=== PATIENT | male | born 1940 | race Caucasian/White ===

== ENCOUNTER 2017-04-23 04:26 | Emergency (ER) | payer MEDICARE, BC ==
--- NOTE | 2017-04-23 05:13 | EDM.PDOC ---
ED HPI GENERAL MEDICAL PROBLEM - General Chief Complaint: Lower Extremity Injury/Pain Stated Complaint: FALL Time Seen by Provider: 04/23/17 04:41 Source of Information: Reports: Patient, RN Notes Reviewed - History of Present Illness INITIAL COMMENTS - FREE TEXT/NARRATIVE: 77-year-old male comes in with left ankle pain. He states he slipped on some ice last evening with resultant injury to the ankle. Discomfort is very mild at rest but more severe with any attempted weightbearing. Denies injury or pain to the knee hip or any other area of his body. Left Ankle Pain Score (Numeric/FACES): 8 - Related Data Allergies Allergy/AdvReac Type Severity Reaction Status Date / Time No Known Allergies Allergy Verified 04/23/17 04:35 Home Meds: Home Meds Aspirin [Halfprin] 81 mg PO DAILY 04/23/17 [History] Diltiazem HCl [Cardizem] 1 tab PO DAILY 04/23/17 [History] Multivitamin [Multi-Vitamin Daily] 1 tab PO DAILY 04/23/17 [History] Past Medical History HEENT History: Reports: Cataract Cardiovascular History: Reports: Afib, CAD, High Cholesterol, Hypertension, [place], Stents Neurological History: Reports: CVA - Past Surgical History HEENT Surgical History: Reports: Cataract Surgery Cardiovascular Surgical History: Reports: Carotid Stents, Coronary Artery Bypass GI Surgical History: Reports: Appendectomy Social & Family History - Family History Family Medical History: Noncontributory - Tobacco Use Smoking Status *Q: Never Smoker - Recreational Drug Use Recreational Drug Use: No Review of Systems - Review of Systems Review Of Systems: See Below Eyes: Reports: No Symptoms Mouth/Throat: Reports: No Symptoms Respiratory: Denies: Pleuritic Chest Pain Cardiovascular: Denies: Chest Pain GI/Abdominal: Denies: Nausea, Vomiting Musculoskeletal: Reports: Leg Pain (Left lower leg), Joint Pain (Left ankle) Skin: Reports: No Symptoms Neurological: Denies: Numbness, Tingling ED EXAM, GENERAL - Physical Exam Exam: See Below General Appearance: Alert, No Apparent Distress Head: Atraumatic Neck: Supple Respiratory/Chest: No Respiratory Distress Extremities: Leg Pain ( no pain with torsion mild tenderness left mid lateral leg, no visible deformity ), Other (There is tenderness of the left ankle, lateral aspect very minimal swelling, mild pain with motion) Neurological: No Motor/Sensory Deficits Skin Exam: Warm, Dry, Other (Stasis dermatitis present left lower leg, ankle and foot) Course - Vital Signs Last Recorded V/S: Last Vital Signs Temp 95.7 F 04/23/17 04:31 Pulse 60 04/23/17 04:31 Resp 16 04/23/17 04:31 BP 132/84 04/23/17 04:31 Pulse Ox 95 04/23/17 04:31 - Orders/Labs/Meds Orders: Active Orders 24 hr Category Date Time Status Ankle Min 3V Lt [CR] Stat Exams 04/23/17 04:46 Ordered Tibia Fibula Lt [CR] Stat Exams 04/23/17 04:46 Ordered Departure - Departure Time of Disposition: 05:21 Disposition: Home, Self-Care 01 Condition: Fair Clinical Impression: Ankle sprain Qualifiers: Encounter type: initial encounter Involved ligament of ankle: unspecified ligament Laterality: left Qualified Code(s): S93.402A - Sprain of unspecified ligament of left ankle, initial encounter - Discharge Information Referrals: Olu Oh MD [Primary Care Provider] - Additional Instructions: Your Xrays show no fracture. Derek wrap left ankle until pain resolving, rest and elevates ankle and foot as much as possible, use walker as much as possible when you do need to walk, follow-up clinic for recheck if not getting better within 5-7 days as expected, return to ED as needed. - My Orders Last 24 Hours: My Active Orders 04/23/17 04:46 Ankle Min 3V Lt [CR] Stat Tibia Fibula Lt [CR] Stat - Assessment/Plan Last 24 Hours: My Active Orders 04/23/17 04:46 Ankle Min 3V Lt [CR] Stat Tibia Fibula Lt [CR] Stat
[2017-04-23] MEDS ORDERED: Acetaminophen 325 MG Tab PO ONE (05:20)
--- NOTE | 2017-04-23 06:48 | CR ---
Left ankle: Two views of the left ankle were obtained as well as two-view showing the left tibia and fibula Ankle mortise is symmetric. Small bony densities are identified off the distal tip of the fibula and distal medial malleolus compatible with old injury. No acute fracture is seen. Vascular calcification is noted. Surgical clips are seen within the lower extremity. Impression: 1. No acute bony abnormality identified on left ankle exam. 2. Other incidental findings as noted above. Diagnostic code #2
--- NOTE | 2017-04-23 07:36 | CR ---
Left tibia and fibula: AP and lateral views of the left tibia and fibula were obtained. Surgical clips are seen along the medial lower extremity. Extensive arterial calcification is seen. No acute fracture or other abnormality is identified. Impression: 1. Incidental findings. No acute bony abnormality is identified. Diagnostic code #2
== END 2017-04-23 05:41 | disposition home or self-care (01) ==
LOC: JD.ED 04:26
DX: S93.402A Sprain of unspecified ligament of left ankle, initial encounter (principal); E78.00 Pure hypercholesterolemia, unspecified; I10 Essential (primary) hypertension; Z79.82 Long term (current) use of aspirin; Z79.899 Other long term (current) drug therapy; W00.0XXA Fall on same level due to ice and snow, initial encounter
CPT/HCPCS: 73590; 73610; 99284; A9270; 99283

== ENCOUNTER 2017-09-12 23:45 | Emergency (ER) | payer MEDICARE, BC ==
--- NOTE | 2017-09-13 02:27 | EDM.PDOC ---
ED HPI GENERAL MEDICAL PROBLEM - General Chief Complaint: Back Pain or Injury Stated Complaint: BACK PAIN Time Seen by Provider: 09/13/17 02:06 Source of Information: Reports: Patient, Family (Son) History Limitations: Reports: Other (Somewhat confused) - History of Present Illness INITIAL COMMENTS - FREE TEXT/NARRATIVE: The patient states that he missed a step while carrying a box of glasses around 10-14 days ago, injuring his lower back, although he did not fall at the time. The pain is felt only in the lower back, and does not radiate. He has been taking Tylenol only. He states that he has seen a chiropractor 3 times, with only temporary relief. He saw his PCP, Dr. Oh, this past 09/10/2017. X-rays of his lower back were negative, and a urinalysis was normal. According to the patient, Dr. Oh recommended that the patient continue with the chiropractor, as well as look into massage. There has been no change in the patient's back pain since he saw Dr. Oh, however, he came to the ED tonight because he had trouble sleeping. The patient acknowledges that he does "not much" activity, other than driving. He acknowledges that he sits in his recliner most of the day. The patient has had prior low back strain, treated by a chiropractor. Lower Back Pain Score (Numeric/FACES): 8 - Related Data Allergies Allergy/AdvReac Type Severity Reaction Status Date / Time No Known Allergies Allergy Verified 09/13/17 00:02 Home Meds: Home Meds Aspirin [Halfprin] 81 mg PO DAILY 04/23/17 [History] Multivitamin [Multi-Vitamin Daily] 1 tab PO DAILY 04/23/17 [History] Amiodarone [Cordarone] 200 mg PO DAILY 09/13/17 [History] Carvedilol 12.5 mg PO BID 09/13/17 [History] Furosemide 40 mg PO DAILY 09/13/17 [History] Isosorbide Dinitrate 20 mg PO BID 09/13/17 [History] Lisinopril 2.5 mg PO DAILY 09/13/17 [History] Orphenadrine [Norflex] 1 tab PO Q12H PRN #10 tab.er 09/13/17 [Rx] Simvastatin [Zocor] 80 mg PO DAILY 09/13/17 [History] Warfarin [Coumadin] 2.5 mg PO DAILY 09/13/17 [History] Past Medical History HEENT History: Reports: Cataract Cardiovascular History: Reports: Afib, CAD, High Cholesterol, [place], Stents Musculoskeletal History: Reports: Fracture Neurological History: Reports: CVA - Past Surgical History HEENT Surgical History: Reports: Cataract Surgery Cardiovascular Surgical History: Reports: Carotid Stents, Coronary Artery Bypass GI Surgical History: Reports: Appendectomy Social & Family History - Family History Family Medical History: Noncontributory - Tobacco Use Smoking Status *Q: Current Every Day Smoker Years of Tobacco use: 50 Packs/Tins Daily: 0.5 - Caffeine Use Caffeine Use: Reports: Coffee - Recreational Drug Use Recreational Drug Use: No ED ROS GENERAL - Review of Systems Review Of Systems: ROS reveals no pertinent complaints other than HPI. ED EXAM,LOWER BACK PAIN/INJURY - Physical Exam Exam: See Below Exam Limited By: No Limitations General Appearance: Alert, WD/WN, No Apparent Distress Back Exam: Other (No visible abnormality to the patient's lower back, such as swelling, erythema, ecchymosis, or abrasion. Minimal tenderness to palpation of the lumbosacral spinous processes, with moderate tenderness to the lumbar paraspinous muscles.) Course - Vital Signs Last Recorded V/S: Last Vital Signs Temp 35.9 C 09/12/17 23:58 Pulse 52 L 09/12/17 23:58 Resp 16 09/12/17 23:58 BP 116/73 09/12/17 23:58 Pulse Ox 90 L 09/12/17 23:58 - Re-Assessments/Exams Free Text/Narrative Re-Assessment/Exam: 09/13/17 02:22 The patient appears to have strained his lower back. Prior evaluation by Dr. Oh on 09/10/2017 did not find any acute injury. Unfortunately, we cannot start the patient on ibuprofen, as he is on Coumadin, however, I can start the patient on Norflex, which may help. Additionally, I am recommending that the patient increase his activity. Departure - Departure Time of Disposition: 02:23 Disposition: Home, Self-Care 01 Condition: Good Clinical Impression: Low back strain - Discharge Information Prescriptions: Orphenadrine [Norflex] 1 tab PO Q12H PRN #10 tab.er PRN Reason: Muscle Spasm Instructions: Low Back Strain Referrals: Olu Oh MD [Primary Care Provider] - Forms: ED Department Discharge Additional Instructions: You were seen in the emergency room for low back pain. On examination, it appears that you have strained your lower back. You have been started on the muscle relaxant Norflex. Take one tablet every 12 hours, as prescribed. Continue to take Tylenol as directed. Follow-up with your PCP, Dr. Oh, as needed. If any other problems, please do not hesitate to return to the ER.
== END 2017-09-13 02:40 | disposition home or self-care (01) ==
LOC: JD.ED 23:45
DX: S39.012A Strain of muscle, fascia and tendon of lower back, initial encounter (principal); I48.91 Unspecified atrial fibrillation; E78.00 Pure hypercholesterolemia, unspecified; I25.2 Old myocardial infarction; F17.210 Nicotine dependence, cigarettes, uncomplicated; Z79.82 Long term (current) use of aspirin; Z79.899 Other long term (current) drug therapy; Z79.01 Long term (current) use of anticoagulants; W10.9XXA Fall (on) (from) unspecified stairs and steps, initial encounter
CPT/HCPCS: 99283

== ENCOUNTER 2017-10-21 06:56 | Day surgery (SDC) | payer MEDICARE, BC ==
--- NOTE | 2017-10-15 10:36 | HP ---
DATE OF ADMISSION: 10/21/2017 HISTORY: This is the first orthopedic outpatient admission for surgery for this 77-year- old male, who is being scheduled for a kyphoplasty fracture stabilization of the T12 vertebral body. The patient suffered a fall dating back to 08/30/2017, had progressive increasing pain, was evaluated in mid September with an MRI evaluation and was found to have the acute compression fracture of T12. He was treated in a conservative fashion, which did not help the pain reaction. He continues to have a pain scale of 7 to 8 with activity. If he does increase significant activity, it increases to a 9. He also notes he has a constant pain with rest at approximately at 1 to 2 level. The patient's functional activity has decreased to approximately 20% of normal. He is very limited in his activities, unable to walk any extended distances, or do any type of extended type of activity due to the pain reaction. With the failed treatment, the patient was seen in the clinic, went over the treatment process of performing a kyphoplasty fracture stabilization. He understands that and feels that he would like to come follow through with the procedure due to the fact that he has not improved in his current pain reaction itself. ALLERGIES: Penicillin, oxycodone, and elavil. CURRENT MEDICATIONS: The patient currently is on levothyroxine, Coreg, Lasix, Zocor, along with Coumadin, lisinopril, . The patient notes will be stopping the Coumadin 5 days prior to surgery. MEDICAL PROBLEMS: Include atrial fibrillation, high blood pressure, had a CVA in the past, atherosclerotic disease of the arteries, congestive heart failure, increased cholesterol, hypothyroidism, melena, and a history of a myocardial infarction in the past. PAST SURGICAL HISTORY: Includes a coronary artery bypass surgery. He has had an appendectomy, hernia repair, knee surgery. He had no anesthesia complications or problems. He has a negative bleeding history, negative blood clot history. SOCIAL HISTORY: The patient is a smoker, half pack per day or less. He does not use alcohol. PHYSICAL EXAMINATION: GENERAL: The patient is a well-developed, well-nourished, 77-year-old male, in moderate to severe distress. He is alert. He shows minimal activity and minimal ambulation type status. HEENT: His head normocephalic. NECK: Supple. CHEST: Clear. COR: Abnormal and irregular due to atrial fibrillation. ABDOMEN: Soft. : Intact. MUSCULOSKELETAL: The thoracic spine reveals severe pain to percussion and palpation over the T12 thoracic spine area. RADIOGRAPHIC STUDIES: MRI shows a positive acute compression fracture osteoporotic of T12 with a localized area of blood formation within the vertebral body creating a soft area and an unstable vertebral body for healing. ASSESSMENT: Overall impression is osteoporotic compression fracture of T12, not healing. PLAN: Will be for the patient to undergo kyphoplasty fracture stabilization with biopsy. MMODAL /[id number]
[~2017-10-21 06:56] MED LIST: Lidocaine 1%/Sod Bicarbonate in NS 8.4% 1 ML Syringe IDERM PRN; Sodium Chloride 0.9% 10 ML Syringe FLUSH PRN
[2017-10-21] MEDS ORDERED: Ondansetron 4 MG/2 ML SDV ONE (07:17)
[2017-10-21] MEDS ORDERED: Midazolam 1 MG/ML 2 ML SDV ONE (07:17)
[2017-10-21] MEDS ORDERED: Propofol 200 MG/20 ML SDV ONE ×2 (07:17→08:35)
[2017-10-21] MEDS ORDERED: fentaNYL 100 MCG/2 ML SDV ONE (07:17)
[2017-10-21] MEDS ORDERED: Lidocaine 1% 4 ML ONE (07:18)
[2017-10-21] MEDS ORDERED: ceFAZolin 1 GM Vial ONE (07:18)
[2017-10-21] MEDS ORDERED: Ketamine 500 mg/10 ML MDV ONE (07:19)
[2017-10-21] MEDS: Lactated Ringers 1,000 ML IV SCH ×2 (07:30→12:27)
[2017-10-21] MEDS ORDERED: Vancomycin 1 GM SDV ONE (07:39)
[2017-10-21] MEDS ORDERED: Iopamidol 612 MG/ML 50 ML SDV ONE (07:39)
[2017-10-21] MEDS ORDERED: Lidocaine 1% with EPINEPHrine 1:100,000 20 ML MDV ONE (07:39)
--- NOTE | 2017-10-21 07:42 | PCM.PREANE ---
Preanesthetic Assessment - Anesthesia/Transfusion/Family Hx Anesthesia History: Prior Anesthesia Without Reaction Family History of Anesthesia Reaction: No Transfusion History: Prior Transfusion Without Reaction - Review of Systems General: No Symptoms Pulmonary: No Symptoms Cardiovascular: No Symptoms Gastrointestinal: No Symptoms Neurological: Change in Speech (stroke from 1995) Other: Reports: Easy Bleeding, Easy Bruising, Thyroid Problems - Physical Assessment NPO Status Date: 10/20/17 NPO Status Time: 00:00 Pulse: 53 O2 Sat by Pulse Oximetry: 92 Respiratory Rate: 20 Blood Pressure: 121/69 Temperature: 36.7 C Height: 1.8 m Weight: 86 kg ASA Class: 3 Mental Status: Alert & Oriented x3 Airway Class: Mallampati = 1 Dentition: Reports: Dentures Thyro-Mental Finger Breadths: 3 Mouth Opening Finger Breadths: 3 ROM/Head Extension: Full Lungs: Clear to Auscultation, Normal Respiratory Effort Cardiovascular: Irregular Rhythm - Lab Values: on chart - Allergies Allergies/Adverse Reactions: Allergies Allergy/AdvReac Type Severity Reaction Status Date / Time amitriptyline [From Elavil] Allergy Itching Verified 10/20/17 16:37 oxycodone Allergy Itching Verified 10/20/17 16:37 Penicillins Allergy Rash Verified 10/20/17 16:37 - Anesthesia Plan Pre-Op Medication Ordered: Beta Portillo Beta Portillo: Carvedilol Med Last Dose Date: 10/21/17 Med Last Dose Time: 06:30 - Acknowledgements Anesthesia Type Planned: MAC Pt an Appropriate Candidate for the Planned Anesthesia: Yes Alternatives and Risks of Anesthesia Discussed w Pt/Guardian: Yes Pt/Guardian Understands and Agrees with Anesthesia Plan: Yes PreAnesthesia Questionnaire HEENT History: Reports: Cataract, Impaired Vision Cardiovascular History: Reports: Afib, CAD, Heart Failure, High Cholesterol, [place] , PVD, Stents, Other (See Below) Other Cardiovascular History: left bundle branch block, ASCVD, varicose veins, PVD Respiratory History: Reports: None Gastrointestinal History: Reports: GERD, Other (See Below) Other Gastrointestinal History: melena, inguinal hernia Genitourinary History: Reports: Prostate Disorder [employer]EL[employer] History: Reports: None Musculoskeletal History: Reports: Back Pain, Chronic, Fracture, Osteoarthritis, Other (See Below) Other Musculoskeletal History: compression fracture, lumbago, plantar fascial fibromatosis Neurological History: Reports: CVA, Other (See Below) Other Neuro History: cerebral embolism with infarction Psychiatric History: Reports: Other (See Below) Other Psychiatric History: insomnia Endocrine/Metabolic History: Reports: Hypothyroidism Hematologic History: Reports: None Immunologic History: Reports: None Oncologic (Cancer) History: Reports: None Dermatologic History: Reports: Venous Stasis Dermatitis, Other (See Below) Other Dermatologic History: ulcer to lower leg, venous stasis ulcer - Past Surgical History Head Surgeries/Procedures: Reports: None HEENT Surgical History: Reports: Cataract Surgery Cardiovascular Surgical History: Reports: Carotid Stents, Coronary Artery Bypass Respiratory Surgical History: Reports: None GI Surgical History: Reports: Appendectomy, Colonoscopy, Hernia, Inguinal Other Female Surgeries/Procedures: prostate surgery Male Surgical History: Reports: Other (See Below) Endocrine Surgical History: Reports: None Musculoskeletal Surgical History: Reports: Arthroscopic Knee Oncologic Surgical History: Reports: None - SUBSTANCE USE Smoking Status *Q: Current Every Day Smoker Recreational Drug Use History: No - HOME MEDS Home Medications: Home Meds Aspirin [Halfprin] 81 mg PO DAILY 04/23/17 [History] Multivitamin [Multi-Vitamin Daily] 1 tab PO DAILY 04/23/17 [History] Amiodarone [Cordarone] 200 mg PO DAILY 09/13/17 [History] Carvedilol 6.25 mg PO BID 09/13/17 [History] Furosemide 40 mg PO DAILY 09/13/17 [History] Isosorbide Dinitrate 20 mg PO BID 09/13/17 [History] Lisinopril 2.5 mg PO DAILY 09/13/17 [History] Orphenadrine [Norflex] 1 tab PO Q12H PRN #10 tab.er 09/13/17 [Rx] Simvastatin [Zocor] 40 mg PO DAILY 09/13/17 [History] Warfarin [Coumadin] 2.5 mg PO DAILY 09/13/17 [History] Levothyroxine 75 mcg PO DAILY 10/20/17 [History] Magnesium Hydroxide [Milk of Magnesia] 30 ml PO BEDTIME PRN 10/20/17 [History] Nitroglycerin [Nitrostat] 0.4 mg SL ASDIRECTED PRN 10/20/17 [History] Sodium Chloride 5% [Summer 128 5% Ophth Oint] 1 applic EYEBOTH BID 10/20/17 [ History] Sodium Chloride/Aloe Vera [[place] Saline Nasal Gel [place]] 1 spray NASBOTH Q2H PRN 10/20/17 [History] - CURRENT (IN HOUSE) MEDS Current Meds: Current Medications Lactated Ringer's (Ringers, Lactated) 1,000 mls @ 125 mls/hr IV ASDIRECTED EUNICE Stop: 10/21/17 23:00 Lidocaine/Sodium Bicarbonate (Buffered Lidocaine 1% In Ns 8.4%) 0.25 ml IDERM ONETIME PRN PRN Reason: Prior to IV Start Stop: 10/21/17 18:00 Sodium Chloride (Saline Flush) 10 ml FLUSH ASDIRECTED PRN PRN Reason: Keep Vein Open Stop: 10/21/17 18:00 Discontinued Medications Cefazolin Sodium (Ancef) Confirm Administered Dose 2 gm .ROUTE .STK-MED ONE Stop: 10/21/17 07:19 Fentanyl (Sublimaze) Confirm Administered Dose 100 mcg .ROUTE .STK-MED ONE Stop: 10/21/17 07:18 Lidocaine HCl (Xylocaine-Mpf 1%) Confirm Administered Dose 4 mls @ as directed .ROUTE .STK-MED ONE Stop: 10/21/17 07:19 Ketamine HCl (Ketalar) Confirm Administered Dose 500 mg .ROUTE .STK-MED ONE Stop: 10/21/17 07:20 Midazolam HCl (Versed 1 Mg/Ml) Confirm Administered Dose 2 mg .ROUTE .STK-MED ONE Stop: 10/21/17 07:18 Ondansetron HCl (Zofran) Confirm Administered Dose 4 mg .ROUTE .STK-MED ONE Stop: 10/21/17 07:18 Propofol (Diprivan 20 Ml) Confirm Administered Dose 200 mg .ROUTE .STK-MED ONE Stop: 10/21/17 07:18
[2017-10-21] MEDS ORDERED: Ondansetron 4 MG/2 ML SDV IVPUSH PRN (07:44)
[2017-10-21] MEDS ORDERED: traMADol 50 MG Tab PO PRN ×2 (07:44→15:48)
[2017-10-21] MEDS ORDERED: Ketorolac 15 MG/ML SDV IVPUSH PRN (07:44)
[2017-10-21] MEDS ORDERED: ePHEDrine/Normal Saline 25 MG/5 ML Syringe ONE (08:23)
[2017-10-21] MEDS ORDERED: HYDROmorphone 0.5 MG/0.5 ML Syringe IVPUSH PRN (09:17)
[2017-10-21] MEDS ORDERED: fentaNYL 100 MCG/2 ML SDV IVPUSH PRN (09:17)
--- NOTE | 2017-10-21 09:19 | PCM.POSTAN ---
POST ANESTHESIA ASSESSMENT - MENTAL STATUS Mental Status: Somnolent - VITAL SIGNS Pulse Rate: 48 SaO2: 94 Resp Rate: 11 Blood Pressure: 86/54 Temperature: 37.4 C - RESPIRATORY Respiratory Status: Respiratory Rate WNL, Airway Patent, O2 Saturation Stable, Supplemental Oxygen - CARDIOVASCULAR CV Status: Pulse Rate WNL, Blood Pressure Stable - GASTROINTESTINAL GI Status: No Symptoms - PAIN Pain Score: 0 - POST OP HYDRATION Hydration Status: Adequate & Stable - OBSERVATIONS Free Text/Narrative:: no anesthesia complications noted
--- NOTE | 2017-10-21 10:22 | CR ---
Thoracic spine: Multiple fluoroscopic spot views were obtained centered at thoracolumbar junction during vertebroplasty procedure utilizing C-arm device. Study shows vertebroplasty procedure within a compression deformity of T12. Fluoroscopy time not given at time of dictation. Impression: 1. Procedural study as noted above. Diagnostic code #2
--- NOTE | 2017-10-21 13:46 | PCM48HPAN ---
Post Anesthesia Note - EVALUATION WITHIN 48HRS OF ANESTHETIC Vital Signs in Normal Range: Yes Patient Participated in Evaluation: Yes Respiratory Function Stable: Yes (O2 sat 88% ) Airway Patent: Yes Cardiovascular Function Stable: Yes Hydration Status Stable: Yes Pain Control Satisfactory: Yes Nausea and Vomiting Control Satisfactory: Yes Mental Status Recovered: Yes Pulse Rate: 48 Resp Rate: 17 Temperature: 37.4 C Blood Pressure: 86/54
[2017-10-21] MEDS ORDERED: Albuterol 0.083% 2.5 MG/3 ML Neb Soln NEB ONE (14:40)
[2017-10-21] MEDS ORDERED: Bumetanide 1 MG/4 ML MDV IVPUSH ONE (16:45)
[2017-10-21] MEDS ORDERED: Warfarin 2.5 MG Tab PO SCH (16:45)
[2017-10-21] MEDS ORDERED: Albuterol/Ipratropium 3.0-0.5 MG/3 ML Neb Soln NEB PRN (16:49)
[2017-10-21] MEDS ORDERED: Sodium Chloride 0.9% 10 ML Syringe FLUSH PRN (17:08)
--- NOTE | 2017-10-21 17:33 | CR ---
Chest: Portable view of the chest was obtained. Comparison: Prior chest x-rays of 09/26/11. Heart size is felt to be slightly enlarged. Tortuous thoracic aorta is noted. Sternotomy is noted. Pulmonary vessels are minimally increased. Atelectasis is noted within the left lung base. Lungs otherwise are clear. Impression: 1. Heart is slightly enlarged with mild pulmonary vascular congestion. 2. Slight left basilar atelectasis. Diagnostic code #3
--- NOTE | 2017-10-21 17:35 | PCM.SN ---
- Free Text/Narrative Note: Yin, OR nurse referred this patient to us from post recovery room who is S/p kyphoplasty and could not get off supplemental O2. He carries no known baseline for O2 but in the post op unit, he desaturates in the 70s w/o on RA. Patient uses no home supplemental O2. During the surgery, he received a total of 1L of NS. A review of his past medical hx/o reveals he has CAD, HTN, Chronic Venous Stasis , Hypothyroidism, Varicose Veins with Ulcer, Lumbago, Hx/o Microscopic Hematuria , Plantar Fascial Fibromastosis, [employer] Use Disorder, Hx/o CVA, Hx/o Transaminitis, PAF on warfarin, HLD and HFrEF but unknown EF who was found to have a fairly recent acute compression fracture of T12 on MRI. He came in today for same day surgery kyphoplasty performed by Dr. Fleming. His current vitals show a BP of 138/68 mmHg, HR in the upper 50s bpm, O2 sat of 88-93% on 4.5L NC. He sounded wet with 1-2+ lower extremity edema. Patient tells me he did not take his lasix this morning b/c he was told not to. However he looks stable and not in respiratory distress. He is able to hold a conversation w/o getting short of breath. It likely that he developed pulmonary congestion from fluids he received during surgery. We will go ahead and order 1 mg of IV Bumex and stat Chest XR. Informed his nurse to check for his routine evening meds and give it to him as scheduled.
--- NOTE | 2017-10-22 08:16 | OR ---
DATE OF OPERATION: 10/21/2017 SURGEON: Abdoul Fleming MD PREOPERATIVE DIAGNOSIS: Acute osteoporotic compression fracture, T12, with intractable pain. POSTOPERATIVE DIAGNOSIS: Acute osteoporotic compression fracture, T12, with intractable pain. ANESTHESIA: Sedation with local. OPERATION PERFORMED: Kyphoplasty fracture stabilization, T12 vertebral body. DESCRIPTION OF PROCEDURE: The patient was taken to the operative room in a supine position, where he was placed under a light sedation and transferred to the operating table in a prone position. Once the patient was positioned, fluoroscopy was brought in to identify the level of surgery at T12. The pedicles were marked on the skin. The operation proceeded with prepping and draping by standard technique. After prepping and draping, the area of the pedicles and skin was then anesthetized with 1% lidocaine and epinephrine to deadened the area. Two stab incisions were used over the right and left pedicle. The kyphoplasty instrumentation and cannula were then inserted down to the pedicle on the right side and through fluoroscopy was guided into the vertebral body going through the pedicle itself. Once positioned the vertebral body, the biopsies were then taken and then the balloon inflation was carried out. The patient had a significant fracture hematoma on the superior endplate anteriorly, which was removed with suction at the time of the insertion of the balloon area. Once that was completed, the operation proceeded to the left side, approach again was a stab incision. The cannula instrumentation was then carried down to the pedicle and then used fluoroscopy. The fluoroscopy was then guided down through the pedicle into the posterior aspect of vertebral body. Core biopsies were again taken. The balloon inflation was then inserted. The positions were then marked and identified with hard copy x-rays. The operation proceeded with the placement of cement, 3 mL of cement was placed on the right side, 2.5 mL on the left side. This completely filled the previous hematoma formation that occurred. The endplate had been lifted and secured with the cement fixation. Nice solid filling of the vertebral body and superior endplate itself was carried out. Once that was completed, the cement hardened, the instruments were then removed. The skin was then closed with 3-0 Prolene, standard dressings were applied. The patient tolerated the procedure well. Left the operating room in stable condition to his room for recovery. ESTIMATED BLOOD LOSS: MMODAL /[id number]
== END 2017-10-21 18:30 | disposition home or self-care (01) ==
LOC: JD.SDS 06:56
PROVIDERS: ATTEND Specialist
DX: S22.089A Unspecified fracture of T11-T12 vertebra, initial encounter for closed fracture (principal); I11.0 Hypertensive heart disease with heart failure; I50.22 Chronic systolic (congestive) heart failure; F17.210 Nicotine dependence, cigarettes, uncomplicated; I69.328 Other speech and language deficits following cerebral infarction; I48.0 Paroxysmal atrial fibrillation; I48.2 Chronic atrial fibrillation; E03.9 Hypothyroidism, unspecified; E78.2 Mixed hyperlipidemia; W19.XXXA Unspecified fall, initial encounter; Z79.01 Long term (current) use of anticoagulants; Z79.899 Other long term (current) drug therapy; Z88.0 Allergy status to penicillin; Z88.5 Allergy status to narcotic agent; Z88.8 Allergy status to other drugs, medicaments and biological substances
CPT/HCPCS: 22513; 36415; 71045; 76000; 85610; 94640; A9270; C1713; J0690; J2250; J2405; J2704; J3010; J3370; J3490; J7050; J7120; Q9967; J2001